=== PATIENT | male | born 1960 ===

== ENCOUNTER 2023-08-26 12:45 | Inpatient (IN) | payer OTHER ==
[2023-08-26 13:14] VITALS: BMI 25.0
[2023-08-26] MEDS ORDERED: IBUPROFEN 600 MG TABLET (FP) PO PRN (17:33)
[2023-08-26] MEDS ORDERED: BENZONATATE 200 MG CAPSULE PO PRN (17:33)
[2023-08-26] MEDS ORDERED: IBUPROFEN 400 MG TABLET (FP) PO PRN (17:33)
[2023-08-26] MEDS ORDERED: POLYETHYLENE GLYCOL (HEALTHYLAX) 3350 17 GM PACKET PO PRN (17:33)
[2023-08-26] MEDS ORDERED: LOPERAMIDE HCL 2 MG CAPSULE PO PRN (17:33)
[2023-08-26] MEDS ORDERED: MAGNESIUM HYDROX 2400MG/30ML ORAL SUSPENSION 30 ML CUP PO PRN (17:33)
[2023-08-26] MEDS ORDERED: DOCUSATE SODIUM 100 MG CAPSULE (FP) PO PRN (17:33)
[2023-08-26] MEDS ORDERED: NICOTINE POLACRILEX 2 MG GUM BUC PRN (17:33)
[2023-08-26] MEDS ORDERED: guaiFENesin 600 MG TABLET.ER (FP) PO PRN (17:33)
[2023-08-26] MEDS ORDERED: BENZOCAINE/MENTHOL (CHLORASEPTIC ) LOZENGE MM PRN (17:33)
[2023-08-26] MEDS ORDERED: ACETAMINOPHEN 325 MG TABLET (FP) PO PRN (17:33)
[2023-08-26] MEDS ORDERED: MAG HYDROX/AL HYDROX/SIMETH 30 ML UNIT-DOSE CUP PO PRN (17:33)
[2023-08-26] MEDS ORDERED: TUBERCULIN PPD 5 TU/0.1ML VIAL ID ONE (19:20)
[2023-08-26 20:04] VITALS: TEMP 97.5
[2023-08-26] MEDS: THIAMINE HCL 100 MG TABLET (FP) PO SCH (21:34)
[2023-08-26] MEDS: MELATONIN 5 MG TABLETS PO SCH (21:34)
[2023-08-26] MEDS: TUBERCULIN PPD 5 TU/0.1ML SYRINGE (IN PATIENT USE ONLY) ID ONE (21:35)
[2023-08-27] MEDS: PRENATAL VITAMINS W/ FOLIC ACID TABLET (FP) PO SCH (10:15)
[2023-08-27 11:49] LABS: HEMATOCRIT 39.2 % (35.4-49); MCH 29.1 pg (25.7-33.7); MCHC 33.3 g/dl (32.0-35.9); MEAN CELL VOLUME 87.6 fl (80-96); MEAN PLT VOLUME 9.5 fl (7.5-11.1); PLATELET COUNT 167 10^3/uL (134-434); RBC 4.47 M/mm3 (4.00-5.60); RDW 15.9 % (11.9-15.9); WHITE BLOOD COUNT 4.8 K/mm3 (4.0-10.0)
[2023-08-27 11:58] LABS: POTASSIUM 4.1 mmol/L (3.5-5.1)
[2023-08-27 12:14] LABS: ALBUMIN 3.2 g/dl (3.4-5.0); BLOOD UREA NITROGEN 13.8 mg/dL (7-18)
[2023-08-27 12:19] LABS: BILIRUBIN,TOTAL 0.2 mg/dL (0.2-1); TOT PROT 6.2 g/dl (6.4-8.2)
[2023-08-27] MEDS: risperiDONE 2 MG TABLET PO SCH (21:20)
[2023-08-28] MEDS: SERTRALINE HCL 50 MG TABLET (FP) PO SCH (10:06)
[2023-08-29 06:55] VITALS: BP 103/75; PULSE 58; RESP 20
== END 2023-08-29 15:15 | disposition left against medical advice (07) | DRG 894 ==
LOC: YASAS 12:45 → Y3W 18:45
PROVIDERS: ADMIT Allergy & Immunology; ATTEND Psychiatry & Neurology Pain Medicine
PROC: HZ42ZZZ Group Counseling for Substance Abuse Treatment, Cognitive-Behavioral (ICD-10-PCS; principal; 2023-08-26)
DX: F14.20 Cocaine dependence, uncomplicated (principal); Z59.02 Unsheltered homelessness; F10.10 Alcohol abuse, uncomplicated; F17.210 Nicotine dependence, cigarettes, uncomplicated; F25.9 Schizoaffective disorder, unspecified; N40.0 Benign prostatic hyperplasia without lower urinary tract symptoms
CPT/HCPCS: 36415; 80053; 85027; 86780; 87811; 93005; 93010

== ENCOUNTER 2024-07-12 20:30 | Inpatient (IN) | payer OTHER ==
[2024-07-12 21:01] VITALS: BMI 20.6
[2024-07-12] MEDS ORDERED: IBUPROFEN 400 MG TABLET (FP) PO PRN (22:34)
[2024-07-12] MEDS ORDERED: BENZOCAINE/MENTHOL (CHLORASEPTIC ) LOZENGE MM PRN (22:34)
[2024-07-12] MEDS ORDERED: NALOXONE (NARCAN) HCL 4 MG/0.1 ML SPRAY NS PRN (22:34)
[2024-07-12] MEDS ORDERED: ACETAMINOPHEN 325 MG TABLET (FP) PO PRN (22:34)
[2024-07-12] MEDS ORDERED: BENZONATATE 200 MG CAPSULE PO PRN (22:34)
[2024-07-12] MEDS ORDERED: guaiFENesin 600 MG TABLET.ER (FP) PO PRN (22:34)
[2024-07-12] MEDS ORDERED: MAG HYDROX/AL HYDROX/SIMETH 30 ML UNIT-DOSE CUP PO PRN (22:34)
[2024-07-12] MEDS ORDERED: IBUPROFEN 600 MG TABLET (FP) PO PRN (22:34)
[2024-07-12] MEDS ORDERED: MAGNESIUM HYDROX 2400MG/30ML ORAL SUSPENSION 30 ML CUP PO PRN (22:34)
[2024-07-12] MEDS ORDERED: NICOTINE POLACRILEX 2 MG GUM BUC PRN (22:34)
[2024-07-12] MEDS ORDERED: POLYETHYLENE GLYCOL (HEALTHYLAX) 3350 17 GM PACKET PO PRN (22:34)
[2024-07-12] MEDS ORDERED: MELATONIN 5 MG TABLETS ONE (23:27)
[2024-07-12] MEDS: MELATONIN 5 MG TABLETS PO SCH (23:32)
[2024-07-13] MEDS: NALOXONE (NYS OPIOID OVERDOSE PROGRAM) 4 MG/0.1 ML SPRAY NS SCH (00:42)
[2024-07-13 07:00] VITALS: RESP 18
[2024-07-13] MEDS: INSULIN (NOVOLOG) ASPART 100 UNITS/ML 10ML VIAL SQ ONE (07:31)
[2024-07-13] MEDS: NICOTINE 14 MG/24 HOURS TOPICAL PATCH TD SCH (09:49)
[2024-07-13] MEDS: PRENATAL VITAMINS W/ FOLIC ACID TABLET (FP) PO SCH (09:49)
[2024-07-13] MEDS: SERTRALINE HCL 50 MG TABLET (FP) PO SCH (11:15)
[2024-07-13] MEDS ORDERED: INSULIN (NOVOLOG) ASPART 100 UNITS/ML 10ML VIAL ONE ×3 (11:21→17:13)
[2024-07-13] MEDS: INSULIN ASPART SLIDING SCALE (NOVOLOG) 1 VIAL SQ SCH (11:21)
[2024-07-13 11:49] LABS: PH,URINE 6.5 (5.0-8.0); URINE APPEARANCE CLEAR; URINE BILIRUBIN NEGATIVE (NEGATIVE); URINE COLOR YELLOW; URINE GLUCOSE (UA) NEGATIVE (NEGATIVE); URINE KETONE NEGATIVE (NEGATIVE); URINE LEUK ESTERASE NEGATIVE (NEGATIVE); URINE NITRITE NEGATIVE (NEGATIVE); URINE PROTEIN NEGATIVE (NEGATIVE); URINE UROBILINOGEN 0.2 mg/dL (0.2-1.0)
[2024-07-13 11:52] LABS: HEMATOCRIT 35.7 % (35.4-49); HEMOGLOBIN 11.6 GM/dL (11.7-16.9); MCH 29.5 pg (25.7-33.7); MCHC 32.5 g/dl (32.0-35.9); MEAN CELL VOLUME 90.9 fl (80-96); MEAN PLT VOLUME 10.2 fl (7.5-11.1); PLATELET COUNT 171 10^3/uL (134-434); RBC 3.93 M/mm3 (4.00-5.60); RDW 15.9 % (11.9-15.9); WHITE BLOOD COUNT 4.6 K/mm3 (4.0-10.0)
[2024-07-13 11:59] LABS: SODIUM 144 mmol/L (136-145)
[2024-07-13 12:05] LABS: ALBUMIN 2.5 g/dl (3.4-5.0); BLOOD UREA NITROGEN 19.9 mg/dL (7-18); CALCIUM 8.6 mg/dL (8.5-10.1); CO2 30 mmol/L (21-32); GLUCOSE,RANDOM 148 mg/dL (74-106)
[2024-07-13 12:07] LABS: SGOT/AST 28 U/L (15-37); SGPT/ALT 55 U/L (13-61)
[2024-07-13 12:08] LABS: BILIRUBIN,TOTAL 0.2 mg/dL (0.2-1); CREATININE 0.9 mg/dL (0.55-1.3); TOT PROT 5.3 g/dl (6.4-8.2)
[2024-07-13 12:10] LABS: ALK PHOS 147 U/L (45-117)
[2024-07-13 14:22] LABS: ANION GAP 5 mmol/L (4-13); CHLORIDE 110 mmol/L (98-107)
[2024-07-13] MEDS: THIAMINE 100 MG TABLET PO SCH (21:21)
[2024-07-13] MEDS: risperiDONE 2 MG TABLET PO SCH (21:22)
[2024-07-14 06:59] VITALS: BP 121/65; PULSE 73; TEMP 98
[2024-07-14] MEDS: LOPERAMIDE HCL 2 MG CAPSULE PO PRN (14:46)
[2024-07-14] MEDS ORDERED: INSULIN (NOVOLOG) ASPART 100 UNITS/ML 10ML VIAL ONE (16:18)
== END 2024-07-14 16:30 | disposition left against medical advice (07) | DRG 894 ==
LOC: YASAS 20:30 → Y5N 23:12
PROVIDERS: ADMIT Psychiatry & Neurology Pain Medicine; ATTEND Psychiatry & Neurology Pain Medicine
PROC: HZ42ZZZ Group Counseling for Substance Abuse Treatment, Cognitive-Behavioral (ICD-10-PCS; principal; 2024-07-12)
DX: F14.20 Cocaine dependence, uncomplicated (principal); Z59.00 Homelessness unspecified; F10.20 Alcohol dependence, uncomplicated; F17.210 Nicotine dependence, cigarettes, uncomplicated; F25.9 Schizoaffective disorder, unspecified; F41.9 Anxiety disorder, unspecified; F32.A Depression, unspecified; N40.0 Benign prostatic hyperplasia without lower urinary tract symptoms; R73.03 Prediabetes; Z56.0 Unemployment, unspecified
CPT/HCPCS: 36415; 80053; 80305; 80307; 81003; 82962; 85027; 86780; 87811; 93005; 93010